=== PATIENT | female | born 1985 | race Caucasian/White ===

== ENCOUNTER 2018-12-12 05:21 | Inpatient (IN) | payer OTHER ==
[2018-12-12 07:16] LABS: BASO % 0.4 % (0-2.0); EOS % 1.3 % (0-4.5); HEMATOCRIT 38.8 % (32.4-45.2); HEMOGLOBIN 12.7 GM/dL (10.7-15.3); LYMPH % 13.7 % (8-40); MCH 30.8 pg (25.7-33.7); MCHC 32.8 g/dl (32.0-36.0); MEAN CELL VOLUME 93.9 fl (80-96); MEAN PLT VOLUME 8.4 fl (7.5-11.1); NEUT % 77.6 % (42.8-82.8); PLATELET COUNT 229 K/MM3 (134-434); RBC 4.13 M/mm3 (3.60-5.2); RDW 14.4 % (11.6-15.6); WHITE BLOOD COUNT 11.7 K/mm3 (4.0-10.0)
[2018-12-12] MEDS: ELECTROLYTE-148 SOLN 1,000 ML IV SCH ×3 (07:30→19:00)
[2018-12-12 07:44] VITALS: BMI 30.8
[2018-12-12 07:52] LABS: CALCIUM 9.3 mg/dL (8.5-10.1); CREATININE 0.5 mg/dL (0.55-1.3); POTASSIUM 4.1 mmol/L (3.5-5.1)
[2018-12-12 07:54] LABS: INR 0.93 (0.83-1.09)
[2018-12-12 07:57] LABS: ACTIVATED PTT 28.7 SECONDS (25.2-36.5)
[2018-12-12] MEDS ORDERED: PROMETHAZINE HCL 25 MG/1 ML VIAL IVPUSH ONE (08:25)
[2018-12-12] MEDS ORDERED: BUTORPHANOL TARTRATE 1 MG/ML VIAL IVPB ONE (08:25)
[2018-12-12] MEDS ORDERED: LORazepam 0.5 MG TABLET ONE ×3 (10:04→20:02)
[2018-12-12] MEDS: LORazepam 0.5 MG TABLET PO PRN ×3 (10:06→20:20)
[2018-12-12] MEDS ORDERED: FENTANYL/BUPIVACAINE/NS/PF - PCEA - 50 ML DISP.SYRIN EP ONE ×3 (10:34→20:29)
[2018-12-12] MEDS ORDERED: OXYTOCIN 30 UNITS in 0.9% NS 30 UNIT/500 ML INFUS.BAG IVPB ONE (10:34)
[2018-12-12] MEDS ORDERED: OXYTOCIN 30 UNITS in 0.9% NS 30 UNIT/500 ML INFUS.BAG IVPB SCH (11:00)
--- NOTE | 2018-12-12 11:08 | HP ---
Past Medical History - Admission Chief Complaint: Leaking fluid since 5 am. History of Present Illness: 33 y/o with SIUP at 38.2 weeks here with SROM since 5 am. No CTX/VB. +FM. IVF , EDC 12/25/18 by transfer date. Also complicated by short cervix, was on vaginal progesterone until 36 weeks. GDMA2, on insulin. History Source: Patient, Medical Record Limitations to Obtaining History: No Limitations - Past Medical History Cardiovascular: No: HTN Pulmonary: No: Asthma Gastrointestinal: No: GERD Renal/: No: Hematuria, UTI ...: 1 ...Para: 0 ...LMP: 03/19/18 ... Weeks Gestation by Dates: 38.2 ...EDC by Dates: 12/24/18 ...EDC by Sono: 12/22/18 Heme/Onc: No: Anemia Infectious Disease: No: HIV, MRSA, STD's Psych: Yes: Anxiety, Depression, Other (PTSD). No: Bipolar Endocrine: Yes: Diabetes Mellitus (gestational - A2 (on insulin)) - Past Surgical History Past Surgical History: Yes: None Hx Myomectomy: No Hx Transabdominal Cerclage: No - Smoking History Smoking history: Never smoked - Alcohol/Substance Use Hx Alcohol Use: No - Social History Usual Living Arrangement: Yes: With Spouse ADL: Independent History of Recent Travel: No Home Medications - Allergies Allergies/Adverse Reactions: Allergies Allergy/AdvReac Type Severity Reaction Status Date / Time No Known Allergies Allergy Verified 12/12/18 09:20 - Home Medications Home Medications: Ambulatory Orders Lorazepam [Ativan] 0.5 mg PO PRN PRN 10/02/18 Vitamins (Sjr) - 1 tab PO DAILY 10/02/18 Novolog 8 units SQ DAILY 12/06/18 Novolog 8 units SQ DAILY 12/06/18 Review of Systems - Review of Systems Constitutional: reports: No Symptoms Eyes: reports: No Symptoms HENT: reports: No Symptoms Neck: reports: No Symptoms Cardiovascular: reports: No Symptoms Respiratory: reports: No Symptoms Gastrointestinal: reports: No Symptoms Genitourinary: reports: No Symptoms Breasts: reports: No Symptoms Reported Musculoskeletal: reports: No Symptoms Integumentary: reports: No Symptoms Neurological: reports: No Symptoms Endocrine: reports: No Symptoms Hematology/Lymphatic: reports: No Symptoms Psychiatric: reports: No Symptoms Physical Exam - Maternity Vital Signs: Vital Signs Temperature 98.3 F 12/12/18 10:00 Pulse Rate 106 H 12/12/18 09:00 Respiratory Rate 20 12/12/18 09:00 Blood Pressure 132/76 12/12/18 09:00 O2 Sat by Pulse Oximetry (%) Constitutional: Yes: Well Nourished, No Distress, Calm Eyes: Yes: EOM Intact HENT: Yes: Atraumatic Neck: Yes: Supple, Trachea Midline Cardiovascular: Yes: Tachycardia (Pt with baseline tachycardia) Lungs: Clear to auscultation - Abdominal Exam/OB Number of Fetuses: Single Presentation: Vertex Contractions: No Monitor Mode: External Category: I Accelerations: Uniform Decelerations: None - Vaginal Exam/OB Vaginal Bleediing: No Dilatation (cm): 5 Effacement (%): 90 Amniotic Membrane Status: Ruptured Presentation: Vertex/Position Station: -1 - Physical Exam Psychiatric: Yes: Alert, Oriented - Labs Lab Results: CBC, BMP 12/12/18 06:51 12/12/18 06:51 Hemorrhage Risk Assessment - Risk Factors Medium Risk Factors: Yes: None High Risk Factors: Yes: None Risk Score: 1 Risk Level: Medium Risk Assessment/Plan 33 y/o with SIUP at 38.2 weeks, PROM FHTs cat 1 A2GDM, on insulin, check BGM Q2hrs GBS negative EFW 3210gm at 36.5 weeks no contractions, to start pitocin epidural prn
[2018-12-12] MEDS ORDERED: NALOXONE HCL 0.4 MG/ML VIAL IVPUSH PRN (11:36)
[2018-12-12] MEDS ORDERED: FENTANYL/BUPIVACAINE/NS/PF - PCEA - 50 ML DISP.SYRIN EP SCH (11:45)
--- NOTE | 2018-12-12 12:43 | PN ---
Ante-Partal Exam - Subjective Vital Signs: Vital Signs Temperature 98.3 F 12/12/18 10:00 Pulse Rate 111 H 12/12/18 10:28 Respiratory Rate 20 12/12/18 10:28 Blood Pressure 135/99 12/12/18 10:28 O2 Sat by Pulse Oximetry (%) Bleeding: No Headache: No Visual changes: No Right upper quadrant pain: No Pain (scale 1-10): 0 - Contractions Contractions: Yes Regularity: Regular Intensity: Mild/Mod - Exam during Labor Heart Rate: 150 Variability: Moderate Category: I Monitor Accelerations: Present Monitor Decelerations: None Exam: Vaginal Dilatation (cm): 6-7 Effacement (%): 90 Amniotic Membrane Status: Ruptured Presentation: Vertex Station: -1 - Assessment/Plan Assessment/Plan: PROM FHTS cat 1 s/p epidural Continue active management of labor
--- NOTE | 2018-12-12 14:52 | PN ---
Ante-Partal Exam - Subjective Vital Signs: Vital Signs Temperature 97.8 F 12/12/18 14:00 Pulse Rate 104 H 12/12/18 14:30 Respiratory Rate 20 12/12/18 14:30 Blood Pressure 111/86 12/12/18 14:30 O2 Sat by Pulse Oximetry (%) 97 12/12/18 14:30 Bleeding: Yes Bleeding Description: Mild Headache: No Visual changes: No Right upper quadrant pain: No Pain (scale 1-10): 8 - Contractions Contractions: Yes Regularity: Regular - Exam during Labor Heart Rate: 155 Variability: Moderate Category: I Monitor Accelerations: Present Monitor Decelerations: None Exam: Vaginal Dilatation (cm): 8 Effacement (%): 90 Amniotic Membrane Status: Ruptured Presentation: Vertex Station: -1 - Assessment/Plan Assessment/Plan: Pt uncomfortable on her right side. 8cm dilated anesthesia made aware continue active management recheck 1-2 hours
[2018-12-12] MEDS ORDERED: LIDO 2%/EPI 1:200000 PRESRVFRE (20 ML SDVIAL) ONE (14:54)
[2018-12-12] MEDS ORDERED: MAG HYDROX/AL HYDROX/SIMETH 30 ML UNIT-DOSE CUP PO PRN (17:21)
--- NOTE | 2018-12-12 17:29 | PN ---
Ante-Partal Exam - Subjective Subjective: Pt doing well, comfortable with epidural. Vital Signs: Vital Signs Temperature 97.8 F 12/12/18 16:00 Pulse Rate 111 H 12/12/18 16:45 Respiratory Rate 20 12/12/18 16:45 Blood Pressure 115/64 12/12/18 16:45 O2 Sat by Pulse Oximetry (%) 100 12/12/18 16:45 Bleeding: Yes Bleeding Description: Mild Headache: No Visual changes: No Right upper quadrant pain: No Pain (scale 1-10): 0 - Contractions Contractions: Yes Regularity: Regular Intensity: Mod/Strong - Exam during Labor Heart Rate: 140 Variability: Moderate Category: I Monitor Accelerations: Present Monitor Decelerations: None Exam: Vaginal Dilatation (cm): 9 Effacement (%): 90 Amniotic Membrane Status: Ruptured Presentation: Vertex Station: -1 - Assessment/Plan Assessment/Plan: FHTS cat 1 continue active management with pitocin GBS negative recheck 1-2 hours
[2018-12-12] MEDS ORDERED: LIDOCAINE HCL 1% PRESERVATIVE FREE - 30ML VIAL ONE (21:18)
[2018-12-12] MEDS ORDERED: OXYTOCIN 20 UNITS in 0.9% NS 20 UNIT/1,000 ML INFUS.BAG IV ONE (21:18)
[2018-12-12] MEDS: OXYTOCIN 20 UNITS in 0.9% NS 20 UNIT/1,000 ML INFUS.BAG IV SCH (22:25)
--- NOTE | 2018-12-12 22:58 | PN ---
Delivery - Delivery Vaginal Delivery: No Problems Type of Anesthesia: Local, Epidural Episiotomy/Laceration: 2nd degree EBL (cc): 300 Delivery, Single - Stages of Labor Date of Delivery: 12/12/18 Time of Delivery: 10:15 Date Placenta Delivered: 12/12/18 Time Placenta Delivered: : Placenta: Yes: Spontaneous - Condition of Clinical Research Monitor/Loan Administrator Present: No Gender: Male Position: Right, OA - 1 Minute Total Score: 9 5 Minutes Total Score: 9 - Sundown Feeding Plan Initial Plan: Exclusive throughout hospitalization Remarks - Remarks Remarks: Uncomplicated from DONAVAN position across 2nd degree perineal laceration Anterior shoulder (left) delivered with ease along with remainder of 3vc noted, clamped and cut placenta delivered in tact 2nd degree repaired with 2-0 and 3-0 vicryl with excellent hemostatic and cosmetic repaired sponge and needle count correct mom stable baby to well baby nursery
[2018-12-12] MEDS ORDERED: BENZOCAINE 20% 57 GM BOTTLE TP PRN (23:08)
[2018-12-12] MEDS ORDERED: BENZOCAINE 28 GM HEMORRHOIDAL OINTMENT TP PRN (23:08)
[2018-12-12] MEDS ORDERED: WITCH HAZEL 50% (TUCKS) 40 PAD/JAR PAD TP PRN (23:08)
[2018-12-12] MEDS ORDERED: BISACODYL 10 MG SUPP.RECT RC PRN (23:08)
[2018-12-12] MEDS ORDERED: METHYLERGONOVINE MALEATE 0.2 MG/1 ML AMP IM PRN (23:08)
[2018-12-13] MEDS ORDERED: IBUPROFEN 600 MG TABLET (FP) PO ONE (00:09)
[2018-12-13] MEDS: OXYTOCIN 20 UNITS in 0.9% NS 20 UNIT/1,000 ML INFUS.BAG IV SCH (05:32)
--- NOTE | 2018-12-13 07:17 | PN ---
Post Progress Note - Subjective Subjective: Pt seen/evaluated. Doing well, resting in bed. States when she is OOB and ambulating she feels SOB, no CP, no palpitations. Pt with known pre- tachycardia with baseline HR in the low 100s. VB minimal. Tolerating diet, no other complaints. Type of Delivery: Vital Signs: Vital Signs Temperature 98.3 F 12/13/18 06:00 Pulse Rate 120 H 12/13/18 06:00 Respiratory Rate 18 12/13/18 06:00 Blood Pressure 124/76 12/13/18 06:00 O2 Sat by Pulse Oximetry (%) 100 12/12/18 21:15 Uterus: Yes: Fundus Firm Abdomen/GI: Yes: Abdomen soft Lochia: Yes: Rubra Lochia, amount: Small Extremities: No: Calves non-tender, Edema Perineum: Yes: Laceration (2nd degree) Activity: Ambulating - Labs Labs: CBC WBC 11.7 K/mm3 (4.0-10.0) H 12/12/18 06:51 RBC 4.13 M/mm3 (3.60-5.2) 12/12/18 06:51 Hgb 12.7 GM/dL (10.7-15.3) 12/12/18 06:51 Hct 38.8 % (32.4-45.2) 12/12/18 06:51 MCV 93.9 fl (80-96) 12/12/18 06:51 MCH 30.8 pg (25.7-33.7) 12/12/18 06:51 MCHC 32.8 g/dl (32.0-36.0) 12/12/18 06:51 RDW 14.4 % (11.6-15.6) 12/12/18 06:51 Plt Count 229 K/MM3 (134-434) 12/12/18 06:51 MPV 8.4 fl (7.5-11.1) 12/12/18 06:51 Absolute Neuts (auto) 9.1 K/mm3 (1.5-8.0) H 12/12/18 06:51 Neutrophils % 77.6 % (42.8-82.8) 12/12/18 06:51 Lymphocytes % 13.7 % (8-40) 12/12/18 06:51 Monocytes % 7.0 % (3.8-10.2) 12/12/18 06:51 Eosinophils % 1.3 % (0-4.5) 12/12/18 06:51 Basophils % 0.4 % (0-2.0) 12/12/18 06:51 Nucleated RBC % 0 % (0-0) 12/12/18 06:51 Problem List - Problems (1) Vaginal delivery Code(s): O80 - ENCOUNTER FOR FULL-TERM UNCOMPLICATED DELIVERY Assessment/Plan Regular diet PO pain meds await CBC advised continued PO hydration, if tachycardia/EKG continues will start IV fluids and do EKG ice packs and sitz baths to perineum prn routine care
[2018-12-13 08:20] LABS: BASO % 0.3 % (0-2.0); EOS % 0.4 % (0-4.5); HEMATOCRIT 29.8 % (32.4-45.2); LYMPH % 11.2 % (8-40); MCH 31.2 pg (25.7-33.7); MCHC 33.7 g/dl (32.0-36.0); MEAN CELL VOLUME 92.6 fl (80-96); MEAN PLT VOLUME 7.8 fl (7.5-11.1); MONO % 7.2 % (3.8-10.2); NEUT % 80.9 % (42.8-82.8); PLATELET COUNT 237 K/MM3 (134-434); RBC 3.21 M/mm3 (3.60-5.2); RDW 14.6 % (11.6-15.6); WHITE BLOOD COUNT 15.5 K/mm3 (4.0-10.0)
[2018-12-13] MEDS: ACETAMINOPHEN 325 MG TABLET (FP) PO PRN ×2 (09:45→19:16)
[2018-12-13] MEDS: IBUPROFEN 600 MG TABLET (FP) PO PRN ×3 (09:45→19:17)
[2018-12-13] MEDS ORDERED: SENNOSIDES/DOCUSATE COMBO (SENNA PLUS) TABLET (UD) PO PRN (22:00)
[2018-12-14] MEDS: IBUPROFEN 600 MG TABLET (FP) PO PRN (05:48)
[2018-12-14] MEDS: ACETAMINOPHEN 325 MG TABLET (FP) PO PRN (05:49)
--- NOTE | 2018-12-14 06:51 | DS ---
Physical Exam-FAMILY PROTECTION SPECIALIST Vital Signs: Vital Signs Temperature 98.2 F 12/13/18 22:00 Pulse Rate 91 H 12/13/18 22:00 Respiratory Rate 18 12/13/18 22:00 Blood Pressure 129/67 12/13/18 22:00 O2 Sat by Pulse Oximetry (%) 100 12/12/18 21:15 Constitutional: Yes: Well Nourished, No Distress, Calm Eyes: Yes: EOM Intact HENT: Yes: Normocephalic Neck: Yes: Supple Cardiovascular: Yes: Regular Rate and Rhythm Respiratory: Yes: Regular, CTA Bilaterally Gastrointestinal: Yes: Normal Bowel Sounds External Genitalia: Yes: Other (laceration healing well) ....Post : Yes: Uterus firm, Uterus non-tender Neurological: Yes: Alert, Oriented Psychiatric: Yes: Alert, Oriented Labs: CBC, BMP 12/13/18 07:55 12/12/18 06:51 Delivery - Delivery Vaginal Delivery: No Problems Type of Anesthesia: Local, Epidural Episiotomy/Laceration: Perineal Extension/lac, 2nd degree EBL (cc): 400 Delivery, Single - Stages of Labor Date 1st Stage Initiatied: 12/12/18 Time 1st Stage Initiated: 05:00 Date 2nd Stage Initiated: 12/12/18 Time 2nd Stage Initiated: 21:30 Date of Delivery: 12/12/18 Time of Delivery: 22:15 Time Placenta Delivered: 22:23 Placenta: Yes: Spontaneous - Condition of Mine Surveyor/Tie Man Present: No Gender: Male Weight: 8 lb 2 oz Position: Left, OA Total Hours ROM (Hrs/Mins): [id number] - 1 Minute Total Score: 9 5 Minutes Total Score: 9 - Alpha Feeding Plan Initial Plan: Exclusive throughout hospitalization Discharge Summary Reason For Visit: LABOR ADMIT Current Active Problems Vaginal delivery (Acute) Hospital Course: Pt admitted on 12/12 with spontaneous ROM. Was induced with pitocin and had uncomplicated that same day. She then had an uncomplicated post recovery and was discharged home on PPD2. - Instructions - Home Medications Comprehensive Discharge Medication List: Ambulatory Orders Lorazepam [Ativan] 0.5 mg PO PRN PRN 10/02/18 Vitamins (Sjr) - 1 tab PO DAILY 10/02/18 Novolog 8 units SQ DAILY 12/06/18 Novolog 8 units SQ DAILY 12/06/18
[2018-12-14 09:29] VITALS: BP 125/78; PULSE 84; TEMP 98.5
[2018-12-14] MEDS ORDERED: DIPHTH,PERTUSS(ACELL),TET 0.5 ML DISP.SYRIN IM ONE (10:00)
== END 2018-12-14 12:00 | disposition home or self-care (01) | DRG 560 ==
LOC: JLDR 05:21 → J3W 12-13 02:10
PROVIDERS: ADMIT Obstetrics & Gynecology; ATTEND Obstetrics & Gynecology
PROC: 10E0XZZ Delivery of Products of Conception, External Approach (ICD-10-PCS; principal; 2018-12-12)
PROC: 0KQM0ZZ Repair Perineum Muscle, Open Approach (ICD-10-PCS; 2018-12-12)
PROC: 0W8NXZZ Division of Female Perineum, External Approach (ICD-10-PCS; 2018-12-12)
DX: O70.1 Second degree perineal laceration during delivery (principal); O24.424 Gestational diabetes mellitus in childbirth, insulin controlled; O26.873 Cervical shortening, third trimester; Z3A.38 38 weeks gestation of pregnancy; Z37.0 Single live birth
CPT/HCPCS: 36415; 59409; 71046-TC-FY; 80048; 82962; 85025; 85610; 85730; 86593; 86850; 86900; 86901; 90715

== ENCOUNTER 2020-07-18 04:27 | Day surgery (SDC) | payer OTHER ==
[2020-07-17 14:29] VITALS: BMI 29.8
[2020-07-18] MEDS ORDERED: MIDAZOLAM HCL 2 MG/2 ML SINGLE DOSE VIAL ONE ×2 (09:17)
[2020-07-18] MEDS ORDERED: GLYCOPYRROLATE 0.2 MG/1 ML VIAL ONE (09:18)
[2020-07-18] MEDS ORDERED: PROPOFOL 20 ML ONE ×3 (09:38→09:59)
[2020-07-18] MEDS ORDERED: SUCCINYLCHOLINE CHLORIDE 200 MG/10 ML SYRINGE ONE (09:39)
[2020-07-18] MEDS ORDERED: HYDROmorphone HCl 2 MG/ML VIAL ONE (09:45)
[2020-07-18] MEDS ORDERED: METOPROLOL TARTRATE 5 MG/5 ML VIAL ONE (10:28)
[2020-07-18] MEDS ORDERED: LORazepam 2 MG/ML SDV VIAL IVPUSH ONE (11:00)
[2020-07-18] MEDS ORDERED: LORazepam 2 MG/ML SDV VIAL ONE (11:20)
[2020-07-18] MEDS ORDERED: ONDANSETRON 4 MG/2 ML VIAL IVPUSH PRN ×2 (11:55→12:10)
[2020-07-18] MEDS ORDERED: oxyCODONE HCL 5 MG TABLET PO PRN ×2 (11:55→12:10)
[2020-07-18] MEDS ORDERED: LACTATED RINGERS SOLUTION 1,000 ML IV SCH (12:00)
[2020-07-18] MEDS ORDERED: IBUPROFEN 800 MG/8 ML IJ IVPB PRN (12:10)
[2020-07-18] MEDS ORDERED: IBUPROFEN 600 MG TABLET (FP) PO PRN (12:10)
[2020-07-18] MEDS ORDERED: ELECTROLYTE-148 SOLN 1,000 ML IV SCH (12:15)
[2020-07-18 14:01] VITALS: BP 110/64; PULSE 88; TEMP 96.9
== END 2020-07-18 13:55 | disposition home or self-care (01) ==
LOC: JASU-SURG 04:27
PROVIDERS: ATTEND Obstetrics & Gynecology
PROC: 0UJD8ZZ Inspection of Uterus and Cervix, Via Natural or Artificial Opening Endoscopic (ICD-10-PCS; 2020-07-18)
PROC: 0UB97ZX Excision of Uterus, Via Natural or Artificial Opening, Diagnostic (ICD-10-PCS; principal; 2020-07-18 09:00)
PROC: 0UDB7ZX Extraction of Endometrium, Via Natural or Artificial Opening, Diagnostic (ICD-10-PCS; 2020-07-18 09:00)
DX: N92.0 Excessive and frequent menstruation with regular cycle (principal); N84.0 Polyp of corpus uteri
CPT/HCPCS: 84703; 94760

== ENCOUNTER 2020-08-04 14:00 | Emergency (ER) | payer OTHER ==
[2020-08-04 14:31] VITALS: BP 149/80; PULSE 130; TEMP 98.1; BMI 29.8
[2020-08-04] MEDS ORDERED: ACETAMINOPHEN 500 MG TABLET (FP) PO ONE (15:04)
== END 2020-08-04 16:08 | disposition home or self-care (01) ==
LOC: JER 14:00
DX: R50.9 Fever, unspecified (principal)
CPT/HCPCS: 87426; 87804; 99284-25

== ENCOUNTER 2020-08-05 10:25 | Emergency (ER) | payer OTHER ==
[2020-08-05 11:21] VITALS: BP 122/83; PULSE 107; TEMP 98.6; BMI 29.8
== END 2020-08-05 13:27 | disposition home or self-care (01) ==
LOC: JER 10:25
DX: U07.1 COVID-19 (principal); J06.9 Acute upper respiratory infection, unspecified
CPT/HCPCS: 71046-TC-FY; 99284-25

== ENCOUNTER 2024-01-23 21:38 | Emergency (ER) | payer BC, OTHER ==
[2024-01-23 22:00] VITALS: TEMP 98.7; BMI 29.9
[2024-01-23 22:28] LABS: BASO % 0.3 % (0-2.0); EOS % 1.5 % (0-4.5); HEMATOCRIT 36.7 % (32.4-45.2); HEMOGLOBIN 12.3 GM/dL (10.7-15.3); LYMPH % 18.3 % (8-40); MCH 30.5 pg (25.7-33.7); MCHC 33.6 g/dl (32.0-36.0); MEAN CELL VOLUME 90.9 fl (80-96); MEAN PLT VOLUME 6.9 fl (7.5-11.1); NEUT % 73.9 % (42.8-82.8); PLATELET COUNT 274 10^3/uL (134-434); RBC 4.03 M/mm3 (3.60-5.2)
[2024-01-23 22:36] LABS: INR 0.89 (0.83-1.09); PROTHROMBIN TIME (PATIENT) 10.3 SEC (9.7-13.0)
[2024-01-23 22:39] LABS: ACTIVATED PTT 28.8 SECONDS (25.2-36.5)
[2024-01-23 22:54] LABS: ALBUMIN 3.2 g/dl (3.4-5.0); BLOOD UREA NITROGEN 8.3 mg/dL (7-18); CALCIUM 9.2 mg/dL (8.5-10.1)
[2024-01-23 22:57] LABS: CREATININE 0.6 mg/dL (0.55-1.3)
[2024-01-23 22:58] LABS: BILIRUBIN,TOTAL 0.2 mg/dL (0.2-1); TOT PROT 6.7 g/dl (6.4-8.2)
[2024-01-24] MEDS: SODIUM CHLORIDE 0.9% 500 ML INFUS.BAG IV ONE (01:44)
[2024-01-24 02:15] LABS: BASO % 0.6 % (0-2.0); EOS % 0.7 % (0-4.5); HEMATOCRIT 31.6 % (32.4-45.2); HEMOGLOBIN 10.5 GM/dL (10.7-15.3); LYMPH % 14.5 % (8-40); MCH 30.5 pg (25.7-33.7); MCHC 33.2 g/dl (32.0-36.0); MEAN CELL VOLUME 92.1 fl (80-96); MEAN PLT VOLUME 7.1 fl (7.5-11.1); MONO % 4.3 % (3.8-10.2); NEUT % 79.9 % (42.8-82.8); PLATELET COUNT 248 10^3/uL (134-434); RBC 3.43 M/mm3 (3.60-5.2); RDW 13.4 % (11.6-15.6); WHITE BLOOD COUNT 11.4 K/mm3 (4.0-10.0)
[2024-01-24 02:44] VITALS: BP 115/69; PULSE 80; RESP 16
== END 2024-01-24 02:58 | disposition home or self-care (01) ==
LOC: JER 21:38
DX: O09.521 Supervision of elderly multigravida, first trimester (principal); O20.0 Threatened abortion; O99.891 Other specified diseases and conditions complicating pregnancy; R00.0 Tachycardia, unspecified; Z3A.11 11 weeks gestation of pregnancy
CPT/HCPCS: 36415; 76801-TC; 80053; 84702; 85025; 85610; 85730; 86850; 86900; 86901; 99284-25

== ENCOUNTER 2024-07-29 00:12 | Inpatient (IN) | payer BC ==
[2024-07-29] MEDS: OXYTOCIN 20 UNITS in 0.9% NS 20 UNIT/1,000 ML INFUS.BAG IV SCH (00:28)
[2024-07-29] MEDS ORDERED: morphine SULFATE 4 MG/ML VIAL ONE (01:06)
[2024-07-29] MEDS: morphine SULFATE 4 MG/ML VIAL IVPUSH ONE (01:08)
[2024-07-29] MEDS ORDERED: BENZOCAINE 28 GM HEMORRHOIDAL OINTMENT TP PRN (01:29)
[2024-07-29] MEDS ORDERED: WITCH HAZEL 50% (TUCKS) 40 PAD/JAR PAD TP PRN (01:29)
[2024-07-29] MEDS ORDERED: oxyCODONE HCL 5 MG TABLET PO PRN (01:29)
[2024-07-29] MEDS ORDERED: METHYLERGONOVINE MALEATE 0.2 MG/1 ML AMP IM PRN (01:29)
[2024-07-29] MEDS ORDERED: BISACODYL 10 MG SUPP.RECT RC PRN (01:29)
[2024-07-29] MEDS: IBUPROFEN 600 MG TABLET (FP) PO PRN (02:45)
[2024-07-29 03:02] VITALS: BMI 32.8
[2024-07-29 03:27] LABS: BASO % 0.1 % (0-2.0); EOS % 0.3 % (0-4.5); HEMATOCRIT 33.6 % (32.4-45.2); HEMOGLOBIN 11.3 GM/dL (10.7-15.3); MCH 31.3 pg (25.7-33.7); MCHC 33.6 g/dl (32.0-36.0); MEAN PLT VOLUME 7.3 fl (7.5-11.1); NEUT % 86.6 % (42.8-82.8); PLATELET COUNT 273 10^3/uL (134-434); RBC 3.62 M/mm3 (3.60-5.2); RDW 15.3 % (11.6-15.6); WHITE BLOOD COUNT 17.8 K/mm3 (4.0-10.0)
[2024-07-29 03:38] LABS: INR 0.93 (0.83-1.09); PROTHROMBIN TIME (PATIENT) 10.5 SEC (9.7-13.0)
[2024-07-29 03:41] LABS: ACTIVATED PTT 26.9 SECONDS (25.2-36.5)
[2024-07-29 03:42] LABS: POTASSIUM 4.3 mmol/L (3.5-5.1)
[2024-07-29 03:43] LABS: CALCIUM 9.2 mg/dL (8.5-10.1)
[2024-07-29 03:44] LABS: BLOOD UREA NITROGEN 5.6 mg/dL (7-18)
[2024-07-29 03:47] LABS: CREATININE 0.4 mg/dL (0.55-1.3)
[2024-07-29 04:03] VITALS: RESP 18
[2024-07-29] MEDS: BENZOCAINE 20% 57 GM BOTTLE TP PRN (08:02)
[2024-07-29] MEDS: PRENATAL VITAMINS W/ FOLIC ACID TABLET (FP) PO SCH (09:35)
[2024-07-29] MEDS: DOCUSATE SODIUM 100 MG CAPSULE (FP) PO PRN (20:17)
[2024-07-29] MEDS: ACETAMINOPHEN 325 MG TABLET (FP) PO PRN (20:17)
[2024-07-29] MEDS: ALPRAZolam 0.25 MG TABLET PO SCH (21:45)
[2024-07-30 07:52] LABS: BASO % 0.4 % (0-2.0); EOS % 2.1 % (0-4.5); HEMATOCRIT 35.2 % (32.4-45.2); HEMOGLOBIN 11.5 GM/dL (10.7-15.3); LYMPH % 18.9 % (8-40); MCHC 32.7 g/dl (32.0-36.0); MEAN CELL VOLUME 94.8 fl (80-96); MONO % 6.2 % (3.8-10.2); NEUT % 72.4 % (42.8-82.8); PLATELET COUNT 286 10^3/uL (134-434); RBC 3.72 M/mm3 (3.60-5.2); RDW 15.1 % (11.6-15.6); WHITE BLOOD COUNT 14.7 K/mm3 (4.0-10.0)
[2024-07-30] MEDS: SENNOSIDES/DOCUSATE COMBO (SENNA PLUS) TABLET (UD) PO PRN (21:47)
[2024-07-31 10:14] VITALS: BP 130/81; PULSE 95; TEMP 97.9
== END 2024-07-31 13:32 | disposition home or self-care (01) | DRG 807 ==
LOC: JLDR 00:12 → J3W 03:48
PROVIDERS: ADMIT Obstetrics & Gynecology; ATTEND Obstetrics & Gynecology
PROC: 0W8NXZZ Division of Female Perineum, External Approach (ICD-10-PCS; principal; 2024-07-29)
PROC: 10E0XZZ Delivery of Products of Conception, External Approach (ICD-10-PCS; 2024-07-29)
DX: O24.429 Gestational diabetes mellitus in childbirth, unspecified control (principal); Z37.0 Single live birth; O62.3 Precipitate labor; O99.02 Anemia complicating childbirth; D64.9 Anemia, unspecified; Z3A.36 36 weeks gestation of pregnancy; O36.63X0 Maternal care for excessive fetal growth, third trimester, not applicable or unspecified
CPT/HCPCS: 36415; 59409; 80048; 82962; 85025; 85610; 85730; 86780; 86850; 86900; 86901; 87340